=== PATIENT | male | born 1975 | race Caucasian/White ===

== ENCOUNTER 2017-03-17 17:05 | Emergency (ER) | payer OTHER ==
[2017-03-17 17:25] VITALS: BP 145/88
[2017-03-17] MEDS ORDERED: Azithromycin 250 MG Tab PO ONE (17:32)
--- NOTE | 2017-03-17 17:41 | EDM.PDOC ---
ED HPI GENERAL MEDICAL PROBLEM - General Chief Complaint: Fever Stated Complaint: FEVER Time Seen by Provider: 03/17/17 17:20 Source of Information: Reports: Patient History Limitations: Reports: No Limitations - History of Present Illness INITIAL COMMENTS - FREE TEXT/NARRATIVE: Patient presents with cough for 4 days and pain in center chest with coughing. He has had a fever up to 102. No recent antibiotic use. Non-smoker. - Related Data Allergies Allergy/AdvReac Type Severity Reaction Status Date / Time No Known Allergies Allergy Verified 03/17/17 17:25 Home Meds: Home Meds Sertraline HCl [Zoloft] 50 mg PO DAILY 12/09/14 [History] Social & Family History - Tobacco Use Smoking Status *Q: Heavy Tobacco Smoker Years of Tobacco use: 20 Packs/Tins Daily: 3 - Recreational Drug Use Recreational Drug Use: No ED ROS GENERAL - Review of Systems Review Of Systems: See Below Constitutional: Denies: Fever, Chills, Weakness HEENT: Denies: Throat Pain, Vision Change Respiratory: Reports: Cough, Sputum. Denies: Shortness of Breath Cardiovascular: Denies: Lightheadedness, Syncope GI/Abdominal: Denies: Abdominal Pain, Constipation, Diarrhea, Nausea, Vomiting : Reports: No Symptoms Musculoskeletal: Reports: No Symptoms Skin: Denies: Cyanosis, Jaundice, Mottled, Pallor, Diaphoresis Neurological: Denies: Confusion, Dizziness, Headache Psychiatric: Denies: Agitation, Anxiety, Confusion ED EXAM, GENERAL - Physical Exam Exam: See Below Exam Limited By: No Limitations General Appearance: Alert, WD/WN, No Apparent Distress Eye Exam: Bilateral Eye: EOMI, Normal Inspection, PERRL Ears: Normal External Exam, Hearing Grossly Normal Nose: Normal Inspection, No Blood Throat/Mouth: Normal Inspection, Normal Lips, Normal Voice, No Airway Compromise Head: Atraumatic, Normocephalic Neck: Full Range of Motion Respiratory/Chest: No Respiratory Distress, No Accessory Muscle Use, Crackles ( very mild in bilat lung bases). No: Rhonchi, Wheezing, Stridor Cardiovascular: Regular Rate, Rhythm, No Murmur GI/Abdominal: Soft, Non-Tender Back Exam: No: CVA Tenderness (L), CVA Tenderness (R) Extremities: Normal Inspection, Normal Range of Motion Neurological: Alert, Oriented, Normal Cognition, No Motor/Sensory Deficits Psychiatric: Normal Affect, Normal Mood Skin Exam: Warm, Dry, Intact, Normal Color, No Rash Course - Vital Signs Last Recorded V/S: Last Vital Signs Temp 98.0 F 03/17/17 17:20 Pulse 88 03/17/17 17:20 Resp 20 03/17/17 17:20 BP 145/88 H 03/17/17 17:20 Pulse Ox 94 L 03/17/17 17:20 - Orders/Labs/Meds Meds: Medications Discontinued Medications Generic Name Dose Route Start Last Admin Trade Name Ruddy PRN Reason Stop Dose Admin Azithromycin 500 mg 03/17/17 17:32 Zithromax PO 03/17/17 17:33 ONETIME ONE - Re-Assessments/Exams Free Text/Narrative Re-Assessment/Exam: 03/17/17 17:36 Discussed findings and treatment plan with patient. I feel antibiotics are warranted with the slight crackles in lung bases and fever as this appears consistent with a possible early pneumonia vs bacterial bronchitis. Patient discharged in stable condition. Departure - Departure Time of Disposition: 17:34 Disposition: Home, Self-Care 01 Condition: Good Clinical Impression: Acute bronchitis Qualifiers: Bronchitis organism: unspecified organism Qualified Code(s): J20.9 - Acute bronchitis, unspecified - Discharge Information Referrals: Jessica Delgado PA-C [Primary Care Provider] - Additional Instructions: 1. Take the Zithromax as directed. 2. Drink 8 cups of water daily. 3. You can use Robitussin or Mucinex to help loosen the lung secretions. 4. Follow up with your PCP in 3-4 days if not improving or sooner if worsening.
== END 2017-03-17 17:50 | disposition home or self-care (01) ==
LOC: KA.ED 17:05
DX: J20.9 Acute bronchitis, unspecified (principal); F17.210 Nicotine dependence, cigarettes, uncomplicated; Z79.899 Other long term (current) drug therapy
CPT/HCPCS: 99283; A9270